=== PATIENT | female | born 1980 | race Caucasian/White ===

== ENCOUNTER 2019-11-05 14:09 | Outpatient (CLI) | payer BC ==
--- NOTE | 2019-11-05 14:26 | RAD ---
XR Lumbar Spine 2 Or 3 View HISTORY: Bilateral radiating leg pain, low back pain FINDINGS: No fracture, subluxation or bony destruction is identified.
== END 2019-11-05 14:10 | disposition home or self-care (01) ==
LOC: BICRAD 14:09
PROVIDERS: ATTEND Nurse Practitioner Family
DX: M79.604 Pain in right leg (principal); M79.605 Pain in left leg
CPT/HCPCS: 72100

== ENCOUNTER 2019-12-30 15:21 | Outpatient (CLI) | payer BC ==
--- NOTE | 2019-12-30 16:36 | MRI ---
MRI LUMBAR SPINE WITHOUT CONTRAST: Indications: Lumbar pain. Radiation to both legs. FINDINGS: Lumbar vertebrae maintain normal height and alignment. Vertebral body height is normal. The disc spac es are normally preserved. Findings at each level are noted: No significant disc bulge or disc protrusion seen at L1-2, L2-3, or L3-4. No central canal or foramin al stenosis at any of the levels. Mild facet arthrosis present at these levels. L4-5: There is evidence of a small annular fissure. There is a small focal protrusion centrally which indents the anterior thecal sac. This may contact and/or slightly displace both the traversing nerve roots. There is mild facet arthrosis. Mild central canal stenosis. L5-S1: Mild diffuse disc bulge abuts and mildly flattens the anterior thecal sac. Mild facet arthrosi s. No central canal or foraminal stenosis. IMPRESSION: Small central protrusion at L4-5 indents the thecal sac and results in mild central canal stenosis as described above. POS: [facility]
== END 2019-12-30 15:22 | disposition home or self-care (01) ==
LOC: BICMRI 15:21
PROVIDERS: ATTEND Nurse Practitioner Family
DX: M51.16 Intervertebral disc disorders with radiculopathy, lumbar region (principal); M48.061 Spinal stenosis, lumbar region without neurogenic claudication
CPT/HCPCS: 72148

== ENCOUNTER 2020-03-02 07:29 | Outpatient (CLI) | payer BC ==
[2020-03-02] MEDS ORDERED: Magnevist 469MG/ML 20 ML VIAL ONE ×2 (10:03→10:04)
--- NOTE | 2020-03-02 10:50 | MRI ---
MRI of thecervical spine with and without contrast: 03/02/2020 COMPARISON:None available HISTORY:Multiple sclerosis TECHNIQUE: Multiplanar multisequence MR imaging of thecervical spine with and without contrast Findings:The sagittal STIR imaging demonstrates no focal area of osseous marrow edema. Cervical verte bral body height and alignment is normal. C2-3: Unremarkable C3-4: Unremarkable C4-5: Unremarkable C5-6: Unremarkable C6-7: Unremarkable C7-T1: Unremarkable The cervical cord demonstrates normal caliber and signal intensity. The postcontrast imaging demonstr ates no abnormal enhancement within the cervical spine. IMPRESSION:Grossly unremarkable contrast enhanced cervical spine MRI.
--- NOTE | 2020-03-02 10:54 | MRI ---
MRI of thethoracic spine with and without contrast: 03/02/2020 COMPARISON:None available HISTORY:Multiple sclerosis TECHNIQUE: Multiplanar multisequence MR imaging of thethoracic spine with and without contrast Findings:The thoracic cord demonstrates normal caliber and signal intensity. There is a small left paracentral disc protrusion with disc space narrowing and disc desiccation at t he T7-8 level. No associated central canal stenosis. Thoracic vertebral body height and alignment is within normal limits. There is no significant central canal or neural foraminal stenosis within the thoracic spine. The pos tcontrast imaging demonstrates no abnormal enhancement within the thoracic spine. Benign hemangiomas are seen at the T1,T7, T8, T9, and T11 levels. IMPRESSION:No acute findings. Grossly unremarkable thoracic spine MRI with and without contrast.
--- NOTE | 2020-03-02 11:52 | MRI ---
MRI BRAIN WITH AND WITHOUT IV CONTRAST: Date: 03/02/2020 HISTORY: Multiple sclerosis. Patient complains of pain in her hands, legs, and feet. FINDINGS: Comparison made with the noncontrasted study of 03/05/2007. No signal abnormalities are seen on the highly sensitive FLAIR images. No restricted diffusion is not ed. No evidence of infarct, hemorrhage, mass, midline shift, or abnormal extra-axial fluid collection s are seen. The ventricular size is normal and the basilar cisterns are patent. No abnormal postcontr ast enhancement is seen. The visualized paranasal sinuses and left mastoid air cells are well aerated . There is a tiny amount of fluid in the right mastoid air cells. IMPRESSION: Normal MRI of the brain. POS: [facility]
== END 2020-03-02 07:30 | disposition home or self-care (01) ==
LOC: BICMRI 07:29
PROVIDERS: ATTEND Specialist
DX: G35 Multiple sclerosis (principal)
CPT/HCPCS: 70553; 72156; 72157; A9579

== ENCOUNTER 2020-12-18 15:32 | Outpatient (CLI) | payer BC | END 2020-12-18 15:33 | disposition home or self-care (01) | LOC: BICCT 15:32 | PROVIDERS: ATTEND Neurological Surgery | DX: M54.5 Low back pain (principal); M51.26 Other intervertebral disc displacement, lumbar region; M48.061 Spinal stenosis, lumbar region without neurogenic claudication | CPT/HCPCS: 72131 ==

== ENCOUNTER 2022-06-16 15:32 | Outpatient (CLI) | payer BC | END 2022-06-16 15:33 | disposition home or self-care (01) | LOC: ULT 15:32 | PROVIDERS: ATTEND Nurse Practitioner Family | DX: M79.661 Pain in right lower leg (principal) ==

== ENCOUNTER 2024-05-24 16:03 | Outpatient (CLI) | payer BC ==
[2024-05-24 17:04] LABS: Hematocrit 37.8 % (36.0-47.0)
[2024-05-24 17:19] LABS: BHCG - Serum Negative (NEGATIVE); Pregs Control Background? CLEAR/WHITE (CLR/WHITE); Pregs Control Bar Appear? YES (CONTROL BAR)
== END 2024-05-24 16:04 | disposition home or self-care (01) ==
LOC: LABBT 16:03
PROVIDERS: ATTEND Specialist
DX: Z01.818 Encounter for other preprocedural examination (principal)
CPT/HCPCS: 84703; 85014; 93005; 93010

== ENCOUNTER 2024-05-30 06:36 | Day surgery (SDC) | payer BC ==
[2024-05-24 16:17] VITALS: BMI 33.1
[2024-05-30] MEDS ORDERED: SUGAMMADEX SODIUM 200 MG/2 ML VIAL ONE (06:46)
[2024-05-30] MEDS ORDERED: Rocuronium Bromide 10 MG/ML (10ML VIAL) ONE (06:46)
[2024-05-30] MEDS ORDERED: Ondansetron PF 4 MG/2 ML Vial ONE (06:46)
[2024-05-30] MEDS ORDERED: Dexamethasone 4 mg/ml Vial ONE (06:46)
[2024-05-30] MEDS ORDERED: fentaNYL PF 100 MCG/2 ML SYRINGE ONE (06:46)
[2024-05-30] MEDS ORDERED: Lidocaine 1% PF 5 ML VIAL ONE (06:46)
[2024-05-30] MEDS ORDERED: PROPOFOL 40 ML ONE (06:46)
[2024-05-30] MEDS ORDERED: Oxymetazoline HCl 0.05% (30 ML BOT) ONE ×2 (06:47→07:11)
[2024-05-30] MEDS ORDERED: EPINEPHrine 1 MG/ML VIAL ONE ×2 (07:09→08:09)
[2024-05-30] MEDS ORDERED: Lidocaine 1% (PF) 30 ML VIAL ONE (07:11)
[2024-05-30] MEDS ORDERED: Midazolam HCl 2 mg/2 ml Vial ONE (07:58)
[2024-05-30] MEDS ORDERED: Bacitracin Zinc Ointment 30 gm TUBE ONE (08:09)
[2024-05-30] MEDS ORDERED: PHENYLEPHRINE-NS 100 MCG/ML 10 ML SYRINGE ONE (08:21)
[2024-05-30] MEDS ORDERED: fentaNYL 50 mcg/mL 1 mL Vial ONE ×2 (08:48→09:09)
== END 2024-05-30 10:49 | disposition home or self-care (01) ==
LOC: SDC 06:36
PROVIDERS: ATTEND Specialist
PROC: 09BM8ZZ Excision of Nasal Septum, Via Natural or Artificial Opening Endoscopic (ICD-10-PCS; principal; 2024-05-30)
PROC: 09TL7ZZ Resection of Nasal Turbinate, Via Natural or Artificial Opening (ICD-10-PCS; principal; 2024-05-30)
DX: J34.2 Deviated nasal septum (principal); J34.3 Hypertrophy of nasal turbinates; I10 Essential (primary) hypertension; R51.9 Headache, unspecified; J01.90 Acute sinusitis, unspecified; F32.A Depression, unspecified; F41.9 Anxiety disorder, unspecified; E07.9 Disorder of thyroid, unspecified; Z88.5 Allergy status to narcotic agent; Z88.2 Allergy status to sulfonamides
CPT/HCPCS: J0171; J1100; J2250; J2405; J2704; J3010

== ENCOUNTER 2024-10-15 15:27 | Outpatient (CLI) | payer BC | END 2024-10-15 15:28 | disposition home or self-care (01) | LOC: BICMRI 15:27 | PROVIDERS: ATTEND Podiatrist | DX: M76.71 Peroneal tendinitis, right leg (principal) ==